=== PATIENT | male | born 1960 | race African-American/Black ===

== ENCOUNTER 2023-01-17 18:42 | Emergency (ER) | payer SELFPAY ==
[~2023-01-17] VITALS: Ht 172.7 cm; Wt 80.0 kg
[2023-01-17 18:57] VITALS: BP 134/84; PULSE 104; RESP 18; TEMP 99; O2SAT 97
== END 2023-01-17 23:08 | disposition left against medical advice (07) ==
LOC: ER 18:42
DX: Z53.21 Procedure and treatment not carried out due to patient leaving prior to being seen by health care provider (principal)
CPT/HCPCS: 99281

== ENCOUNTER 2023-01-17 22:41 | Emergency (ER) | payer MEDICAID, MEDICARE ==
[~2023-01-17] VITALS: Ht 177.8 cm; Wt 77.0 kg
[2023-01-17 22:50] VITALS: O2SAT 99
[2023-01-18 01:31] VITALS: BP 160/90; PULSE 94; RESP 16; TEMP 98.1
== END 2023-01-18 05:22 | disposition left against medical advice (07) ==
LOC: ER 22:41
DX: Z00.00 Encounter for general adult medical examination without abnormal findings (principal); F20.9 Schizophrenia, unspecified; Z59.00 Homelessness unspecified
CPT/HCPCS: 99283